=== PATIENT | female | born 1945 | race Caucasian/White ===

== ENCOUNTER 2018-06-16 09:08 | Day surgery (SDC) | payer MEDICARE, SELFPAY ==
--- NOTE | 2018-06-15 14:10 | PM.PREOP ---
Pre-operative Note Interval Note History & Physical reviewed/Exam performed by Physician: Yes Changes to H&P: No
--- NOTE | 2018-06-16 08:10 | PM.OP.1 ---
Operative Date/Time/Diagnoses Date of procedure: 06/16/18 Time of procedure: 10:45 Procedure & Clinicians Procedure: Preoperative diagnoses: 1. Right nuclear sclerotic and cortical cataract. 2. Previous LASIK. 3. Ectropion Postoperative diagnoses: 1. Cataract removed by phacoemulsification with placement of posterior chamber intraocular lens. Procedure: Phacoemulsification with posterior chamber intraocular lens implant Surgeon: Joleen Preston MD Complications: None Specimen: None Implant: [id number] Blood loss: None Anesthesia: Retrobulbar with monitored standby Description of procedure: Patient presents with a complaint of decreased vision due to cataract which is affecting activities of daily living. The patient wants surgery to improve vision. She understands it is higher risk due to her previous refractive corneal surgery. This can make the intra-ocular lens calculations more inaccurate. A distance target is chosen. The patient was taken to the operating room and given IV sedation. A retrobulbar block consisting of 6 cc of 2% xylocaine without epinephrine mixed half and half with 0.5% Marcaine with 1 cc of hyaluronidase added is placed between the medial and lateral 1/3 of the inferior orbital rim. Lid akinesia is obtain with 1% xylocaine with epinephrine infiltrated along the lid margin. The eye is manually massaged for 30 sec, prepped using Betadine solution, and draped in the usual sterile fashion. Temporal approach was made, a 1 mm side-port incision was made 90? from the proposed clear corneal incision position. Phenylephrine 1.5% mixed with 1% xylocaine 0.2 cc was placed into the anterior chamber. Viscoat followed by Healon was then placed. A 2.6 mm clear incision with a 2.6 mm blade was placed. A 360 degree capsulorrhexis style capsulotomy was then performed with a cystitome needle on a Healon. Hydrodelineation and hydrodissection were performed. The phacoemulsification unit is introduced, and sculpting notice used to groove the central lens. It is then removed in chopping mode. Epi nucleus is removed with epinuclear mode and irrigation aspiration was used to remove the peripheral cortex. The posterior capsule is polished. The intraocular lens is selected, inspected, power confirmed, and placed in the posterior chamber. The pupil was constricted with Miostat.. The wound was stromally hydrated and tested for leaks, there was none and it was left sutureless. Vigamox 0.1 cc was placed into the anterior chamber. Kenalog 0.2 cc was placed in the superior subconjunctival space. A drop of antibiotic and was placed and the eye was patched and shielded. The patient was stable and returned to the recovery room in excellent condition. Dictated by: Joleen Preston MD Copy to: [facility]
[2018-06-16 09:51] VITALS: BMI 24.8
[2018-06-16] MEDS: PROPARACAINE 0.5% OPHTH SOL 2 DROPS EYE-OP (09:51)
[2018-06-16] MEDS: CATARACT EYE COMPOUND (10 DROPS/SYRINGE) 3 DROPS EYE-OP (09:57)
[2018-06-16 09:58] VITALS: BP 128/80; PULSE 66; RESP 16; TEMP 36.5; O2SAT 99
[2018-06-16] MEDS: BALANCED SALT IRRIG SOLN NO.2 500 ML, EPINEPHrine 1 MG IRR (10:48)
[2018-06-16] MEDS: OFLOXACIN 0.3% OPHTH 5 ML 2 DROPS EYE-RIGHT (10:49)
[2018-06-16] MEDS: NEOMYCIN/POLY/DEX OPHTH OINT 1 APPLIC EYE-RIGHT (10:49)
[2018-06-16] MEDS: HYALURONATE SODIUM 10 MG/ML SYRINGE INJ (10:50)
[2018-06-16] MEDS: LIDOCAINE 1% W/EPI INJ 20 ML INJ (10:50)
[2018-06-16] MEDS: MOXIFLOXACIN OPHTH DROPS 3 ML BOTTLE 2 DROPS INJ (10:50)
[2018-06-16] MEDS: TRIAMCINOLONE 50 MG/5 ML VIAL INJ (10:51)
[2018-06-16] MEDS: BALANCED SALT IRRIG SOLN NO.2 15 ML IRR (10:51)
[2018-06-16] MEDS: CHONDROIDTIN/SOD HYALURONATE 1.05 ML SYRINGE INTRAOCULA (10:51)
[2018-06-16] MEDS: PHENYLEPHRINE/LIDOCAINE VIAL (OR) 0.2 ML EYE-OP (10:51)
[2018-06-16] MEDS: LIDOCAINE 2% 4 ML, BUPIVACAINE 0.5% (PF) 4 ML, HYALURONIDASE 150 UNIT INJ (10:52)
[2018-06-16 11:20] VITALS: BP 134/80; PULSE 72; RESP 15; TEMP 36.2; O2SAT 99
== END 2018-06-16 11:36 | disposition home or self-care (01) ==
PROVIDERS: Visit Provider Ophthalmology
DX: H25.811 Combined forms of age-related cataract, right eye (principal)
CPT/HCPCS: J0171; J2250; J2704; J3010; J3301; J3470

== ENCOUNTER 2018-07-14 11:52 | Day surgery (SDC) | payer MEDICARE, SELFPAY ==
--- NOTE | 2018-07-11 11:55 | PM.PREOP ---
Pre-operative Note Interval Note History & Physical reviewed/Exam performed by Physician: Yes Changes to H&P: No
--- NOTE | 2018-07-11 11:55 | PM.OP.1 ---
Operative Date/Time/Diagnoses Date of procedure: 07/14/18 Time of procedure: 13:15 Procedure & Clinicians Procedure: Preoperative diagnoses: 1. Left nuclear sclerotic and cortical cataract. 2. Previous LASIK. Postoperative diagnoses: 1. Cataract removed by phacoemulsification with placement of posterior chamber intraocular lens and use of MiLOOP. Procedure: Phacoemulsification with posterior chamber intraocular lens implant with use of MiLOOP.. Surgeon: Joleen Preston MD Complications: None Specimen: None Implant: [id number] Blood loss: None Anesthesia: Retrobulbar with monitored standby Description of procedure: Patient presents with a complaint of decreased vision due to cataract which is affecting activities of daily living. The patient wants surgery to improve vision. She has had previous LASIK which increases intraoperative risk and a Miloop is planned to reduce the intra-ocular energy use. The patient was taken to the operating room and given IV sedation. A retrobulbar block consisting of 6 cc of 2% xylocaine without epinephrine mixed half and half with 0.5% Marcaine with 1 cc of hyaluronidase added is placed between the medial and lateral 1/3 of the inferior orbital rim. Lid akinesia is obtain with 1% xylocaine with epinephrine infiltrated along the lid margin. The eye is manually massaged for 30 sec, prepped using Betadine solution, and draped in the usual sterile fashion. Temporal approach was made, a 1 mm side-port incision was made 90? from the proposed clear corneal incision position. Phenylephrine 1.5% mixed with 1% xylocaine 0.2 cc was placed into the anterior chamber. Viscoat followed by Shane was then placed. A 2.6 mm clear incision with a 2.6 mm blade was placed. A 360 degree capsulorrhexis style capsulotomy was then performed with a cystitome needle on a Healon. Hydrodelineation and hydrodissection were performed. Extra viscoelastic was then placed into the anterior chamber. The MiLOOP device was inspected, placed into the anterior chamber in the neutral position and then hooked under the right side of the capsulorrhexis around the nucleus and it is carmen-dissected. The phacoemulsification unit is introduced, and used to emulsify the central lens. It is then removed in chopping mode. Epi nucleus is removed with epinuclear mode and irrigation aspiration was used to remove the peripheral cortex. The posterior capsule is polished. The intraocular lens is selected, inspected, power confirmed, and placed in the posterior chamber. The pupil was constricted with Miostat.. The wound was stromally hydrated and tested for leaks, there was none and it was left sutureless. Vigamox 0.1 cc was placed into the anterior chamber. Kenalog 0.2 cc was placed in the superior subconjunctival space. A drop of antibiotic and was placed and the eye was patched and shielded. The patient was stable and returned to the recovery room in excellent condition. Dictated by: Joleen Preston MD Copy to: [facility]
[2018-07-14 12:48] VITALS: BMI 25.0
[2018-07-14 12:54] VITALS: BP 156/78; PULSE 72; RESP 16; TEMP 37.5; O2SAT 99
[2018-07-14] MEDS: CATARACT EYE COMPOUND (10 DROPS/SYRINGE) 3 DROPS EYE-OP (13:15)
[2018-07-14] MEDS: PROPARACAINE 0.5% OPHTH SOL 2 DROPS EYE-OP (13:17)
[2018-07-14] MEDS: LIDOCAINE 2% 4 ML, BUPIVACAINE 0.5% (PF) 4 ML, HYALURONIDASE 150 UNIT INJ (14:07)
[2018-07-14] MEDS: LIDOCAINE 1% W/EPI INJ 20 ML INJ (14:08)
[2018-07-14] MEDS: MOXIFLOXACIN OPHTH DROPS 3 ML BOTTLE 2 DROPS INJ (14:09)
[2018-07-14] MEDS: TRIAMCINOLONE 50 MG/5 ML VIAL INJ (14:09)
[2018-07-14] MEDS: PHENYLEPHRINE/LIDOCAINE VIAL (OR) 0.2 ML EYE-OP (14:09)
[2018-07-14] MEDS: OFLOXACIN 0.3% OPHTH 5 ML 2 DROPS EYE-LEFT (14:10)
[2018-07-14] MEDS: CARBACHOL 1.5 ML VIAL INJ (14:10)
[2018-07-14] MEDS: HYALURONATE SODIUM 10 MG/ML SYRINGE INJ (14:10)
[2018-07-14] MEDS: NEOMYCIN/POLY/DEX OPHTH OINT 1 APPLIC EYE-LEFT (14:10)
[2018-07-14] MEDS: CHONDROIDTIN/SOD HYALURONATE 1.05 ML SYRINGE INTRAOCULA (14:10)
[2018-07-14] MEDS: BALANCED SALT IRRIG SOLN NO.2 15 ML IRR (14:10)
[2018-07-14] MEDS: BALANCED SALT IRRIG SOLN NO.2 500 ML, EPINEPHrine 1 MG IRR (14:11)
[2018-07-14 15:43] VITALS: BP 132/69; PULSE 65; RESP 12; TEMP 36.2; O2SAT 98
== END 2018-07-14 14:43 | disposition home or self-care (01) ==
LOC: OR 11:54
PROVIDERS: Visit Provider Ophthalmology
PROC: (CPT 66984; principal; 2018-07-14 13:15)
DX: H25.812 Combined forms of age-related cataract, left eye (principal)
CPT/HCPCS: 66984; J0171; J2250; J2704; J3010; J3301; J3470